=== PATIENT | male | born 1960 | race Caucasian/White ===

== ENCOUNTER 2022-10-27 04:07 | Observation (INO) ==
[2022-10-27] MEDS ORDERED: Ondansetron 4 mg VIAL 2 MG/ML 2 ml VIAL IV ONE (05:10)
[2022-10-27 06:27] LABS: ABS Monocytes 0.4 10^3/ul (0-0.8); ABS Neutrophils 7.2 10^3/ul (1.5-7.7); Hematocrit 43 % (42-52); Hemoglobin 14.6 g/dL (14.0-18.0); Lymphocyte % 11.6 %; Mean Corpuscular HGB Conc 34 g/dL (31-36); Mean Corpuscular Hemoglobin 31 pg (27-31); Mean Corpuscular Volume 90 fL (80-94); Mean Platelet Volume 7.9 fL (7.4-10.4); Platelet Count 221 10^3/uL (150-450); Red Blood Count 4.73 10^6 /uL (4.18-5.48); Red Cell Distribution Width 13 % (10-15); White Blood Count 8.6 10^3/uL (3.5-10.8)
[2022-10-27 06:32] LABS: Urine Appearance Clear; Urine Bilirubin Negative (Negative); Urine Blood 2+ (Negative); Urine Color Yellow; Urine Glucose Negative (Negative); Urine Ketones Trace (Negative); Urine Nitrite Negative (Negative); Urine Protein 1+(30 mg/dL) (Negative); Urine Specific Gravity 1.024 (1.002-1.030); Urine Urobilinogen Negative (Negative)
[2022-10-27 06:33] LABS: Urine Bacteria Absent (Absent); Urine Red Blood Cell 3+(>10/hpf) (Absent); Urine White Blood Cell Trace(0-5/hpf) (Absent)
[2022-10-27 06:41] LABS: Albumin 4.5 g/dL (3.2-5.2); Calcium 9.1 mg/dL (8.6-10.3); Potassium 4.1 mmol/L (3.5-5.0); Total Bilirubin 3.5 mg/dL (0.2-1.0)
[2022-10-27 06:47] LABS: Albumin/Globulin Ratio 2.3 (1-3); Creatinine, Serum 1.16 mg/dL (0.67-1.17); Total Protein 6.5 g/dL (6.4-8.9); eGFR CKD-EPI 71.2 (>60)
[2022-10-27] MEDS ORDERED: cefTRIAXone 2 gm/50 mL D5W 2 GM/50 ML BAG IV ONE (07:28)
[2022-10-27] MEDS ORDERED: Ondansetron 4 mg VIAL 2 MG/ML 2 ml VIAL IV PRN ×2 (07:49→10:50)
[2022-10-27] MEDS ORDERED: Lactated Ringers 1000 ml BAG 1,000 ML IV SCH (08:00)
[2022-10-27 10:07] LABS: Direct Bilirubin 0.3 mg/dL (0.03-0.18); Indirect Bilirubin 3.2 mg/dL (0.3-1.0)
[2022-10-27] MEDS ORDERED: Iohexol 180 (CONTRAST) 20 ML SDV IV ONE (10:43)
[2022-10-27] MEDS ORDERED: Iohexol 180 (CONTRAST) 10 ML SDV IV ONE (10:44)
[2022-10-27] MEDS ORDERED: fentaNYL 100 mcg/2 ml 50 MCG/ML VIAL IV PRN (10:50)
[2022-10-27] MEDS ORDERED: Naloxone 0.4 mg VIAL 0.4 mg/ml 1 ml VIAL IV PRN (10:50)
[2022-10-27] MEDS ORDERED: Propofol 10 MG/ML 20 ML BTL ONE (11:00)
[2022-10-27] MEDS ORDERED: Lidocaine 2% PF 5 ML VIAL ONE (11:00)
[2022-10-27] MEDS ORDERED: Midazolam 2 mg/2 ml VIAL 1 mg/ml 2 ml VIAL (2 mg) ONE (11:02)
[2022-10-27] MEDS ORDERED: fentaNYL 100 mcg/2 ml 50 MCG/ML VIAL ONE (11:02)
[2022-10-27] MEDS ORDERED: Ondansetron 4 mg VIAL 2 MG/ML 2 ml VIAL ONE (11:44)
[2022-10-27] MEDS ORDERED: Dexamethasone IV 4 MG/ML VIAL 1 ml VIAL ONE (11:44)
[2022-10-27 13:58] VITALS: BP 131/88
[2022-10-28] MEDS ORDERED: cefTRIAXone 2 gm/50 mL D5W 2 GM/50 ML BAG IV SCH (08:00)
[2022-10-28] MEDS ORDERED: Carbidopa/Levodopa ER 25/100 TABLET.ER PO SCH (09:00)
== END 2022-10-27 13:37 | disposition home or self-care (01) ==
LOC: ED 04:07 → EDHOLD 04:07
PROVIDERS: ADMIT Internal Medicine; ATTEND Internal Medicine